=== PATIENT | male | born 1990 | race Caucasian/White ===

== ENCOUNTER 2019-10-22 13:41 | Emergency (ER) | payer OTHER, SELFPAY ==
--- NOTE | ~2019-10-22 | CT_ITS ---
EXAMINATION: CT abdomen pelvis w con EXAM DATE: 10/22/2019 15:07 INDICATION: Right-sided abdominal, flank pain. TECHNIQUE: Spiral CT of the abdomen and pelvis was performed following intravenous injection of 100 m L Omnipaque 350. Axial, coronal and sagittal images were reviewed. The dose-length product (DLP) fo r this examination was 538.56 mGy-cm. The exposure was tailored according to patient size (auto mA e xposure control), and iterative reconstruction (ASIR) was used as additional dose reduction technique . There is no prior study for comparison. FINDINGS: The liver, spleen, adrenal glands and pancreas are unremarkable. Gallbladder is unremarkab le. No biliary obstruction. There is a 3 mm stone in the right ureterovesicular junction with mild h ydronephrosis. There is additional 4 mm right mid calyceal stone. The prostate is unremarkable. The bladder is unremarkable. There is no retroperitoneal or pelvic lymphadenopathy. The appendix is normal. The stomach and small bowel are unremarkable. There is expected amount of c olonic stool. No free intraperitoneal gas. The heart is normal in size. There are no pericardial or pleural effusions. The lung bases are unremarkable. There are no osteoblastic or osteolytic les ions identified. IMPRESSION: Right UPJ 3 mm stone, mild hydronephrosis. Right nephrolithiasis. Reviewed, dictated and finalized at location B.
[2019-10-22 13:53] VITALS: BP 148/94; PULSE 87; RESP 18; TEMP 36.4; O2SAT 100
[2019-10-22 14:00] VITALS: BP 148/94; PULSE 87; RESP 18; TEMP 36.4; O2SAT 100
--- NOTE | 2019-10-22 14:11 | ED.ABDPAIN ---
HPI - Abdominal Pain General Chief Complaint: Urogenital-Male <Irish Good PA-C - Last Filed: 10/22/19 15:49> Stated Complaint: Possible Kidney Stone <Irish Good PA-C - Last Filed: 10/22/19 15:49> Time Seen by Provider: 10/22/19 13:47 <Irish Good PA-C - Last Filed: 10/22/19 15:49> Source: patient <Irish Good PA-C - Last Filed: 10/22/19 15:49> Mode of arrival: ambulatory <Irish Good PA-C - Last Filed: 10/22/19 15:49> Limitations: no limitations <Irish Good PA-C - Last Filed: 10/22/19 15:49> History of Present Illness HPI narrative: This is a 28 year old male that presents to the ER for right sided flank pain x 3 hours. Reports it radiates to his right abdomen. Associated with nausea and vomiting. Denies fever, dysuria, hematuria. <Irish Good PA-C - Last Filed: 10/22/19 15:49> Related Data Allergies/Adverse Reactions: Allergies Allergy/AdvReac Type Severity Reaction Status Date / Time Penicillins Allergy Unknown Hives Verified 10/22/19 13:59 Grass Allergy Mild Itching Uncoded 10/22/19 13:59 <Irish Good PA-C - Last Filed: 10/22/19 15:49> Review of Systems Review of Systems: Narrative: CONSTITUTIONAL: Denies fever GASTROINTESTINAL: Reports abdominal pain, nausea, vomiting GENITOURINARY: Denies dysuria or hematuria. MUSCULOSKELETAL: Reports back pain <Irish Good PA-C - Last Filed: 10/22/19 15:49> All systems reviewed & are unremarkable except as noted in HPI and below <Irish Good PA-C - Last Filed: 10/22/19 15:49> [facility] Past Medical History Medical History: Medical History (Updated 10/22/19 @ 15:23 by Irish Good PA-C) ADD (attention deficit disorder) <Irish Good PA-C - Last Filed: 10/22/19 15:49> Family History Family History: Family History (Updated 01/29/19 @ 07:18 by Shannon Morgan [facility]) Grandparent Neurological disease Other Asthma Diabetes mellitus Family history of cardiovascular disease Family history of migraine headaches Hypertension <Irish Good PA-C - Last Filed: 10/22/19 15:49> Social History Social History: Social History (Updated 10/22/19 @ 14:14 by Irish Good PA-C) Smoking status: Never smoker Alcohol intake: never Substance use: current Substance use type: marijuana Gender identity (if verbalized by the patient): Male Sexual Orientation (if Verbalized by the Patient): Straight or Heterosexual <Irish Good PA-C - Last Filed: 10/22/19 15:49> Exam Narrative: Exam Narrative: GENERAL: Well-appearing, well-nourished, and in mild acute distress due to pain. HEAD: Normocephalic, atraumatic. EYES: EOMI. CHEST: Clear to auscultation. No respiratory distress. No wheezes rales or rhonchi HEART: Regular rate and rhythm. No murmur heard. Normal peripheral pulses. ABDOMEN: Soft, nontender, nondistended, normal active bowel sounds. No CVA tenderness EXTREMITIES: Normal range of motion. No edema. SKIN: Warm, dry, no rash. NEURO: No focal deficits. Alert and oriented x3. PSYCH: Normal mood and affect <Irish Good PA-C - Last Filed: 10/22/19 15:49> Course Vital Signs Vital signs: Vital Signs Temperature 97.5 F L 10/22/19 13:53 Pulse Rate 87 10/22/19 13:53 Respiratory Rate 18 10/22/19 13:53 Blood Pressure 148/94 H 10/22/19 13:53 Pulse Oximetry 100 10/22/19 13:53 Temperature 97.5 F L 10/22/19 14:00 Pulse Rate 81 10/22/19 14:48 Respiratory Rate 21 H 10/22/19 14:48 Blood Pressure 124/84 10/22/19 14:48 Pulse Oximetry 100 10/22/19 14:48 <Irish Good PA-C - Last Filed: 10/22/19 15:49> Vital Signs Temperature 97.5 F L 10/22/19 13:53 Pulse Rate 87 10/22/19 13:53 Respiratory Rate 18 10/22/19 13:53 Blood Pressure 148/94 H 10/22/19 13:53 Pulse Oximetry 100 10/22/19 13:53 Temperature 97.5 F L 10/22/19 14:00 Pulse Rate 81 10/22/19 14:48 Respiratory R
[2019-10-22 14:15] LABS: Basophils Absolute Auto 0.1 K/mm3 (0.0-0.1); Basophils Percent Auto 0.4 % (0.2-1.2); Eosinophils Absolute Auto 0.3 K/mm3 (0-0.3); Eosinophils Percent Auto 2.4 % (0-4.4); Immature Granulocyte Absolute 0.06 K/mm3 (0.00-0.031); Immature Granulocyte Percent A 0.5 % (0-0.5); Lymphocytes Absolute Auto 1.14 K/mm3 (0.9-3.2); Mean Corpuscular HGB Conc 36.4 g/dl (32-36); Mean Corpuscular Hemoglobin 31.6 pg (26-34); Mean Platelet Volume 10.4 fl (7.4-10.4); Monocytes Absolute Auto 0.7 K/mm3 (0.1-0.6); Monocytes Percent Auto 5.9 % (2.6-8.5); Neutrophils Absolute Auto 9.2 K/mm3 (1.3-6.7); Neutrophils Percent Auto 80.8 % (45.5-73.1); Platelet Count Result 266 k/mm3 (150-375); Red Blood Count 5.06 M/mm3 (4.6-6.20); Red Cell Distribution Width 11.6 % (11.5-14.5); White Blood Count 11.4 K/mm3 (4.5-10.0)
[2019-10-22] MEDS: ONDANSETRON INJ 4 MG/2 ML VIAL IV PUSH (14:17)
[2019-10-22] MEDS: MORPHINE SULFATE 4 MG/ML INJ IV PUSH (14:17)
[2019-10-22] MEDS: SODIUM CHLORIDE 0.9% IV 1,000 ML 999 ML IV CONT (14:19)
[2019-10-22 14:27] LABS: Anion Gap 14 mmol/L (8-16); Blood Urea Nitrogen 13 mg/dL (9-20); Calcium 9.6 mg/dL (8.4-10.2); Carbon Dioxide 19 mmol/L (22-30); Chloride 104 mmol/L (98-107); Estimated CRCL calculation 97 ml/min; Estimated Glomerular Filt Rate > 60; Glucose 121 mg/dL (75-110); Potassium 3.7 mmol/L (3.4-5.0); Sodium 137 mmol/L (137-145)
[2019-10-22 14:48] VITALS: BP 124/84; PULSE 81; RESP 21; O2SAT 100
--- NOTE | 2019-10-22 14:49 | PC.NURSE ---
pt still unable to void . rn verbalized that if we are unable to pee after 30 min we will attempt a straight cath. pt has finished a 1LNS bolus.
[2019-10-22 15:34] LABS: Add Urine Microscopic? YES; Appearance Urine Cloudy (Clear); Bilirubin Urine Negative (Negative); Blood Urine 3+ (Negative); Color Urine Yellow (Yellow); Glucose Urine UA Negative (Negative); Ketones Urine 1+ mg/dL (Negative); Leukocyte Esterase Ur Negative LEU/UL (Negative); Mucus Urine Heavy /lpf; Nitrate Urine Negative (Negative); Protein Urine 2+ mg/dL (Negative); RBC Urine >75 /hpf (0-2); Squamous Epithelial Cell Urine Rare /hpf (Few); Urobilinogen Urine Negative mg/dL (<2.0); WBC Urine 0-3 /hpf
[2019-10-22 15:35] LABS: Specific Grav Ur 1.034 (1.001-1.035)
[2019-10-22 16:32] VITALS: BP 120/75; PULSE 81; RESP 19; O2SAT 100
== END 2019-10-22 16:32 | disposition home or self-care (01) ==
PROVIDERS: Physician Assistant; Emergency Provider Emergency Medicine; PCP Internal Medicine
DX: N13.2 Hydronephrosis with renal and ureteral calculous obstruction (principal)
CPT/HCPCS: 36415; 74177; 80048; 81001; 85025; 96365; 96375; 99284; J0131; J2270; J2405; J7030; Q9967

== ENCOUNTER 2021-05-12 13:48 | Outpatient (CLI) | payer OTHER, SELFPAY ==
--- NOTE | ~2021-05-12 | US_ITS ---
EXAMINATION: US renal BI EXAM DATE: 05/12/2021 14:19 INDICATION: Hx of right nephrolithiasis seen on CT. Right flank pain. History kidney stones. TECHNIQUE: Multiple grayscale and Doppler images of the kidneys were obtained (by a technologist who performed the scan) and subsequently reviewed. Correlation is made to prior CT examination from 2019. FINDINGS: Right kidney: There is normal contour and echogenicity. It measures 12.1 x 5.6 x 4.2 centimeters. T here are no focal renal lesions identified. There is no hydronephrosis. Left kidney: There is normal contour and echogenicity. It measures 13.0 x 5.6 x 6.0 centimeters. Th ere are no focal renal lesions identified. There is no hydronephrosis. Bladder unremarkable. Bilateral ureteral jets were confirmed. IMPRESSION: 1. Sonographically unremarkable kidneys. Reviewed, dictated and finalized at location A. DISPLAYS ANALYST
[2021-05-12 14:26] LABS: Basophils Percent Auto 0.4 % (0.2-1.2); Eosinophils Absolute Auto 0.1 K/mm3 (0-0.3); Eosinophils Percent Auto 1.4 % (0-4.4); Hematocrit 42.1 % (42.0-52.0); Hemoglobin 14.7 g/dL (14.0-18.0); Immature Granulocyte Absolute 0.03 K/mm3 (0.00-0.031); Immature Granulocyte Percent A 0.4 % (0-0.5); Lymphocytes Absolute Auto 2.36 K/mm3 (0.9-3.2); Lymphocytes Percent Auto 29.7 % (18.3-44.2); Mean Corpuscular HGB Conc 34.9 g/dl (32-36); Mean Corpuscular Hemoglobin 31.9 pg (26-34); Mean Corpuscular Volume 91.3 fl (80-100); Mean Platelet Volume 10.2 fl (7.4-10.4); Monocytes Absolute Auto 0.7 K/mm3 (0.1-0.6); Monocytes Percent Auto 8.2 % (2.6-8.5); Neutrophils Absolute Auto 4.8 K/mm3 (1.3-6.7); Neutrophils Percent Auto 59.9 % (45.5-73.1); Platelet Count Result 253 k/mm3 (150-375); Red Blood Count 4.61 M/mm3 (4.6-6.20); Red Cell Distribution Width 11.9 % (11.5-14.5); White Blood Count 7.9 K/mm3 (4.5-10.0)
[2021-05-12 14:36] LABS: Alanine Aminotransferase 27 U/L (4-50); Albumin Level 4.5 g/dL (3.5-5.1); Alkaline Phosphatase 66 U/L (38-126); Anion Gap 7 mmol/L (8-16); Aspartate Amino Transferase 28 U/L (17-59); Bilirubin,Total 0.6 mg/dL (0.2-1.3); Blood Urea Nitrogen 15 mg/dL (9-20); Calcium 8.7 mg/dL (8.4-10.2); Carbon Dioxide 27 mmol/L (22-30); Chloride 106 mmol/L (98-107); Cholesterol 176 mg/dL (0-200); Estimated Glomerular Filt Rate > 60; Glucose 75 mg/dL (65-110); HDL Direct 36 mg/dL; Potassium 4.2 mmol/L (3.4-5.0); Sodium 140 mmol/L (137-145); Triglycerides 522 mg/dL (<150)
[2021-05-12 14:47] LABS: LDL Cholesterol Direct 79 mg/dL
== END 2021-05-12 13:49 | disposition home or self-care (01) ==
PROVIDERS: Nurse Practitioner; PCP Internal Medicine; Visit Provider Family Medicine
DX: R10.9 Unspecified abdominal pain (principal); Z13.29 Encounter for screening for other suspected endocrine disorder; Z13.220 Encounter for screening for lipoid disorders
CPT/HCPCS: 36415; 76775; 80053; 80061; 85025

== ENCOUNTER 2021-05-26 14:32 | Outpatient (CLI) | payer OTHER, SELFPAY ==
--- NOTE | ~2021-05-26 | CT_ITS ---
EXAMINATION: CT abdomen pelvis wo con DATE: 05/26/2021 14:57 INDICATION: Hematuria. History of kidney stones. TECHNIQUE: Computed tomography (CT) of the abdomen and pelvis was performed without intravenous contr ast. Automated exposure control and iterative reconstruction technique were employed. Exam dose: 716 .62 mGy-cm total exam DLP. COMPARISON: 05/12/2021 bilateral renal ultrasound 10/22/2019 CT abdomen FINDINGS: The lung bases are clear. Normal heart size. No pericardial or pleural effusion. The liver, gallbladder, bile ducts, pancreas, spleen and adrenal glands are unremarkable. There is a nonobstructing 3.5 mm calculus of the mid left kidney. No other urinary tract calculus or hydroureteronephrosis. The urinary bladder, prostate gland and seminal vesicles are unremarkable. Normal caliber of the abdominal aorta. No intraperitoneal or retroperitoneal or pelvic mass lesion or adenopathy or ascites. Normal appendix. No bowel obstruction, bowel wall thickening, pneumatosis or intraperitoneal free air . Very small fat-containing umbilical hernia. No inguinal hernias demonstrated. Included skeletal structures are unremarkable. IMPRESSION: 3.5 mm nonobstructing mid left renal calculus Reviewed, dictated and finalized at Location A. Reviewed, dictated and finalized at location A.
== END 2021-05-26 14:33 | disposition home or self-care (01) ==
PROVIDERS: PCP Internal Medicine; Visit Provider Family Medicine
DX: R31.9 Hematuria, unspecified (principal); N20.0 Calculus of kidney; R10.9 Unspecified abdominal pain; K42.9 Umbilical hernia without obstruction or gangrene
CPT/HCPCS: 74176

== ENCOUNTER 2021-06-10 07:56 | Outpatient (CLI) | payer OTHER, SELFPAY ==
--- NOTE | 2021-06-14 17:57 | WPDHOMESLEEP ---
Sleep Study - Home Unattended Date of Study: 06/10/21 Ordering Provider: Edilma Jeknins DO Interpreting Provider: Edilma Jenkins DO Home Sleep Study Type: Watch PAT Height: 1.83 m Weight: 95.254 kg Body Mass Index: 28.5 Neck Circumference (inches): 16.25 [place]: 10 Reason for Sleep Study Snoring, nighttime choking, unrefreshing sleep Sleep History The patient is a 30-year-old male with ADD and kidney stones that had a sleep study ordered for evaluation of sleep apnea. The patient denies awakening from sleep short of breath. He rarely awakens at night with heartburn, belching or cough. He constantly snores loud enough that others complain. He constantly has trouble sleeping when he has a cold. He rarely wakes up gasping for air throughout the night. He occasionally has breathing problems at night observed by himself or others. He denies sweating excessively at night. He denies having heart palpitations or irregular heartbeats during the night. He rarely falls asleep during the day and never while driving. He frequently has trouble at school or work due to sleepiness. He denies sleep paralysis, cataplexy and hypnagogic / hypnopompic hallucinations. He frequently has nightmares. He occasionally has thoughts racing through his mind. He frequently feels sad or depressed. He constantly has anxiety. He denies noticing parts of his body jerk. He denies kicking during the night. He denies having crawling and aching feelings in his legs as well as leg pain during the night. He denies grinding his teeth during sleep and awakening morning jaw pain. Denies being bothered by pain during the day and being awakened by pain during the night. He rarely wakes up feeling stiff in the morning with sore or achy muscles. He rarely wakes up with pain in neck, spine and other joints. He goes to bed between 11:00 p.m. and midnight on weekdays and between midnight and 1:00 a.m. on the weekends. It does not take him longer to fall asleep. He wakes up 3 times throughout the night. When he awakens, he will drink water. He can fall back asleep within 5 minutes. He wakes up at 8:00 a.m. on weekdays and between 8 and 9 a.m. on the weekends. He typically gets 67 hours of sleep per night. he will stay in bed for 30 minutes after waking up in the morning. He currently lives with his . He does not consume any caffeinated beverages within 2 hours of bedtime. Does not engage in physical activity before bedtime. He will watch television before falling asleep. He does not take naps in the afternoon or the evening. He will have 1 caffeinated beverage per day. He currently uses E cigarettes daily. He does use marijuana. He denies alcohol use. [facility] Past Medical History Medical History ADD (attention deficit disorder) Family History Family History Grandparent Neurological disease Other Asthma Diabetes mellitus Family history of cardiovascular disease Family history of migraine headaches Hypertension Social History Social History Smoking status: Current some day smoker Tobacco type: e-cigarettes/vaping Alcohol intake: current Substance use: current Substance use type: marijuana Gender identity (if verbalized by the patient): Male Sexual Orientation (if Verbalized by the Patient): Straight or Heterosexual Medications Home Medications Medication Instructions Recorded Confirmed Type guaifenesin 600 mg tablet, 600 mg PO BID 05/05/21 05/05/21 History extended release 12 hr pseudoephedrine HCl 30 mg tablet 30 mg PO Q4-6H PRN 05/05/21 05/05/21 History Sleep Procedure The sleep study was completed using [employer] a technically adequate device with seven channels: peripheral arterial tone, actigraphy, body position, snore, respiratory
[2021-06-14 18:07] VITALS: BMI 28.5
== END 2021-06-13 11:42 | disposition home or self-care (01) ==
PROVIDERS: PCP Internal Medicine; Visit Provider Family Medicine
DX: G47.10 Hypersomnia, unspecified (principal)
CPT/HCPCS: 95800

== ENCOUNTER 2021-06-27 10:40 | Outpatient (CLI) | payer OTHER, SELFPAY ==
[2021-06-27 11:06] LABS: Cholesterol 152 mg/dL (0-200); HDL Direct 39 mg/dL; Triglycerides 143 mg/dL (<150)
[2021-06-27 11:16] LABS: LDL Cholesterol Direct 73 mg/dL
== END 2021-06-27 10:41 | disposition home or self-care (01) ==
PROVIDERS: PCP Internal Medicine; Visit Provider Clinical Nurse Specialist
DX: E78.1 Pure hyperglyceridemia (principal)
CPT/HCPCS: 36415; 80061

== ENCOUNTER 2022-09-08 11:14 | Outpatient (CLI) | payer OTHER, SELFPAY ==
[2022-09-08 18:32] LABS: Alanine Aminotransferase 25 U/L (6-50); Albumin Level 4.4 g/dL (3.5-5.1); Alkaline Phosphatase 57 U/L (38-126); Anion Gap 6 mmol/L (8-16); Aspartate Amino Transferase 24 U/L (17-59); Basophils Percent Auto 0.6 % (0.2-1.2); Bilirubin,Total 0.7 mg/dL (0.2-1.3); Blood Urea Nitrogen 18 mg/dL (9-20); Calcium 9.4 mg/dL (8.4-10.2); Carbon Dioxide 29 mmol/L (22-30); Chloride 106 mmol/L (98-107); Cholesterol 186 mg/dL (0-200); Eosinophils Absolute Auto 0.1 K/mm3 (0-0.3); Eosinophils Percent Auto 1.3 % (0-4.4); Estimated Glomerular Filt Rate > 60; Glucose 90 mg/dL (65-110); HDL Direct 40 mg/dL; Hematocrit 44.6 % (42.0-52.0); Hemoglobin 15.4 g/dL (14.0-18.0); Immature Granulocyte Absolute 0.01 K/mm3 (0.00-0.031); Immature Granulocyte Percent A 0.2 % (0-0.5); Lymphocytes Absolute Auto 1.88 K/mm3 (0.9-3.2); Lymphocytes Percent Auto 30.3 % (18.3-44.2); Mean Corpuscular HGB Conc 34.5 g/dl (32-36); Mean Corpuscular Hemoglobin 31.5 pg (26-34); Mean Corpuscular Volume 91.2 fl (80-100); Mean Platelet Volume 10.8 fl (7.4-10.4); Monocytes Absolute Auto 0.6 K/mm3 (0.1-0.6); Monocytes Percent Auto 8.9 % (2.6-8.5); Neutrophils Absolute Auto 3.6 K/mm3 (1.3-6.7); Neutrophils Percent Auto 58.7 % (45.5-73.1); Platelet Count Result 227 k/mm3 (150-375); Potassium 4.6 mmol/L (3.4-5.0); Red Blood Count 4.89 M/mm3 (4.6-6.20); Red Cell Distribution Width 11.9 % (11.5-14.5); Sodium 141 mmol/L (137-145); Triglycerides 137 mg/dL (<150); White Blood Count 6.2 K/mm3 (4.5-10.0)
[2022-09-08 18:43] LABS: LDL Cholesterol Direct 95 mg/dL
== END 2022-09-08 11:15 | disposition home or self-care (01) ==
LOC: ANHGOSHLAB 11:15
PROVIDERS: PCP Internal Medicine; Visit Provider Clinical Nurse Specialist
DX: Z13.228 Encounter for screening for other metabolic disorders (principal); E78.1 Pure hyperglyceridemia; G47.10 Hypersomnia, unspecified
CPT/HCPCS: 36415; 80053; 80061; 84443; 85025

== ENCOUNTER 2023-07-25 11:59 | Outpatient (CLI) | payer OTHER, SELFPAY ==
--- NOTE | ~2023-07-25 | XR_ITS ---
XR chest 2V DATE: 07/25/2023 12:11 INDICATION: Cough TECHNIQUE: 2 views COMPARISON: None FINDINGS: Normal heart size. No hilar or mediastinal enlargement. No pulmonary infiltrate or consolid ation, pleural effusion or pulmonary vascular congestion or pneumothorax is detected. Included skelet al structures are unremarkable. IMPRESSION: No active cardiopulmonary disease Reviewed, dictated and finalized at location B.
== END 2023-07-25 12:00 ==
PROVIDERS: PCP Clinical Nurse Specialist; Visit Provider Clinical Nurse Specialist
DX: R05.9 Cough, unspecified (principal); Z72.0 Tobacco use
CPT/HCPCS: 71046

== ENCOUNTER 2023-10-12 11:29 | Outpatient (CLI) | payer OTHER, SELFPAY ==
[2023-10-12 14:00] LABS: Basophils Percent Auto 0.5 % (0.2-1.2); Eosinophils Absolute Auto 0.1 K/mm3 (0-0.3); Eosinophils Percent Auto 1.8 % (0-4.4); Hematocrit 46.1 % (42.0-52.0); Hemoglobin 15.6 g/dL (14.0-18.0); Immature Granulocyte Absolute 0.01 K/mm3 (0.00-0.031); Immature Granulocyte Percent A 0.2 % (0-0.5); Lymphocytes Absolute Auto 1.81 K/mm3 (0.9-3.2); Lymphocytes Percent Auto 29.1 % (18.3-44.2); Mean Corpuscular HGB Conc 33.8 g/dl (32-36); Mean Corpuscular Hemoglobin 31.7 pg (26-34); Mean Corpuscular Volume 93.7 fl (80-100); Monocytes Absolute Auto 0.5 K/mm3 (0.1-0.6); Monocytes Percent Auto 8.4 % (2.6-8.5); Neutrophils Absolute Auto 3.7 K/mm3 (1.3-6.7); Platelet Count Result 233 k/mm3 (150-375); Red Blood Count 4.92 M/mm3 (4.6-6.20); Red Cell Distribution Width 11.9 % (11.5-14.5); White Blood Count 6.2 K/mm3 (4.5-10.0)
[2023-10-12 14:48] LABS: Alanine Aminotransferase 23 U/L (6-50); Albumin Level 4.4 g/dL (3.5-5.1); Alkaline Phosphatase 64 U/L (38-126); Anion Gap 8 mmol/L (4-12); Aspartate Amino Transferase 40 U/L (17-59); Bilirubin,Total 0.8 mg/dL (0.2-1.3); Blood Urea Nitrogen 19 mg/dL (9-20); Calcium 9.4 mg/dL (8.4-10.2); Carbon Dioxide 26 mmol/L (22-30); Chloride 105 mmol/L (98-107); Cholesterol 170 mg/dL (0-200); Estimated Glomerular Filt Rate > 60; Glucose 91 mg/dL (65-110); HDL Direct 44 mg/dL; Potassium 4.2 mmol/L (3.4-5.0); Sodium 139 mmol/L (137-145); Triglycerides 170 mg/dL (<150)
[2023-10-12 15:03] LABS: LDL Cholesterol Direct 87 mg/dL
== END 2023-10-12 11:30 | disposition home or self-care (01) ==
LOC: ANHGOSHLAB 11:30
PROVIDERS: PCP Clinical Nurse Specialist; Visit Provider Clinical Nurse Specialist
DX: Z13.220 Encounter for screening for lipoid disorders (principal); Z13.29 Encounter for screening for other suspected endocrine disorder
CPT/HCPCS: 36415; 80053; 80061; 85025

== ENCOUNTER 2024-10-21 09:47 | Outpatient (CLI) | payer OTHER, SELFPAY ==
[2024-11-10 15:21] VITALS: BMI 29.1
--- NOTE | 2024-11-10 15:21 | P.SLEEP_ITS ---
Sleep Study - Home Unattended Date of Study: 10/21/24 Ordering Provider: RULA WebsterP-C Interpreting Provider: Edilma Jenkins DO Home Sleep Study Type: Watch PAT Height: 1.83 m Weight: 97.522 kg Body Mass Index: 29.1 Neck Circumference (inches): 16.5 [place]: 9 Reason for Sleep Study snoring, daytime hypersomnia Sleep History The patient is a 33-year-old male that had a sleep study ordered by his sleep physician for evaluation of daytime hypersomnia. The patient admits to snoring loudly, interruptions in breathing while asleep, trouble falling asleep and excessive daytime sleepiness. He does choke or gasp at night. He denies having trouble breathing on his back. He does have morning headaches. He does have a dry or sore mouth / throat. He denies nocturnal heartburn. He denies nocturia. He denies having difficulty staying asleep. He denies having difficulty returning to sleep if he wakes up throughout the night. He does use hypnotics or sedatives. He does feel anxious about sleep. He does feel tired or sleepy during the day. He does feel tired in the morning. He does have the urge to fall asleep during the day. He denies feeling drowsy while driving. He denies sleep paralysis, cataplexy and hypnagogic/ hypnopompic hallucinations. He does clench or grind his teeth. He denies kicking or jerking his legs excessively. He denies having a restless feeling in his legs. He goes to bed at midnight every night. It takes him 30 minutes to fall asleep on work days and 1 hour on his days off. He gets 8 hours of sleep on his days off. His sleep is somewhat restorative on his days off. He denies taking any planned naps. he denies dream enactment behavior. He does sleep walk. He consumes 3-4 cups of caffeinated beverage per day. He has 1 alcoholic beverage 1-2 nights per week. He smokes less than 5 cigarettes per day. He exercises 1-2 nights per week. [facility] Past Medical History Medical History ADD (attention deficit disorder) Family History Family History Grandparent Neurological disease Other Asthma Diabetes mellitus Family history of cardiovascular disease Family history of migraine headaches Hypertension Social History Social History Smoking status: Current every day smoker (vape) Tobacco type: cigarettes and e-cigarettes/vaping Alcohol intake: current Substance use: current Substance use type: marijuana Lack of Transportation: No Lack of Food: Never True Current Housing: I Have Housing Concerned About Future Housing: No Difficulty Paying Gas/Electric Bills: No Difficulty Paying for Meds: No Currently Unemployed: No Education: Associate Degree Difficulty w/ Childcare or Family Care: No Gender identity (if verbalized by the patient): Male Sexual Orientation (if Verbalized by the Patient): Straight or Heterosexual Medications Home Medications ?Medication ?Instructions ?Recorded ?Confirmed ?Type cetirizine 10 mg tablet (Zyrtec) 10 mg PO DAILY PRN 10/09/24 History albuterol sulfate 90 mcg/actuation 1 puff inhalation Q 4H PRN 07/25/23 10/09/24 Rx aerosol inhaler shortness of breath or wheez ing #8.5 grams fluticasone propionate 50 2 spray intranasal DAILY #16 grams 07/25/23 10/09/24 Rx mcg/actuation nasal spray,suspension eszopiclone 2 mg tablet (Lunesta) 2 mg PO QHS #1 table t 10/09/24 10/09/24 Rx Sleep Procedure The sleep study was completed using [employer]ek[employer] a technically adequate device with seven channels: peripheral arterial tone, actigraphy, body position, snore, respiratory movement, pulse oximetry, sleep staging, and heart rate. Prior to using the device, the patient received verbal and written instructions for its application and was provided with the [employer] desk phone number for additional telephonic instruction with 24-hour availability of qualified personnel to answer questions. The study was scored using [facility] guidelines. Sleep Architecture The total recording time is 8 hrs, 22 min. The total sleep time is 7 hrs, 55 min. Sleep latency is 16 minutes. REM latency is 230 minutes. The patient had 3 episodes of waking. Sleep architecture shows 20.1% deep sleep, 63.1% light sleep, and (as % Total Sleep Time) showed NREM (Light 63.1%; Deep 20.1%), and a 16.8% stage REM. The patient spent 36.8% of total sleep time in the supine position. Sleep efficiency was 94.62. Respiratory Analysis The overall AHI (pAHI 4%:) is 2.8. The overall AHI (pAHI 3%:) is 3.2. The central AHI is 0.6. The AHI was 2.0 in NREM and 9.1 in REM sleep. The AHI was 2.1 in Supine and 3.8 in Non-supine sleep. Percent of Dennis Corea respirations is 0.0. Oximetry Data The oxygen desaturation index (SHEFALI 4%:) is 1.1. The mean saturation is 95%, and the lowest saturation is 89%. Time spent with saturation < 88% is 0.0 minutes. Snoring Profile Snoring average intensity is 41 dB. The patient snored above 45 decibels for 19.5 minutes, 4.1% of sleep time. Cardiac Profile The average pulse rate is 76 beats per minutes. The lowest pulse rate is 56 bpm. The highest pulse rate reported is 109 bpm. Atrial fibrillation was not detected. Premature beats occur <0.1 per minute. Assessment and Plan Assessment and Plan (1) Snoring: Code(s): R06.83 - Snoring Status: Acute Assessment and Plan: The patient had an overall AHI of 2.8 with desaturation down to 89%. This is not consistent with sleep-disordered breathing. Due to the patient's hypersomnia, further evaluation is warranted. I recommend that the patient have a split study with the use of a hypnotic to ensure we obtain enough sleep data. Data The data obtained during this sleep study is adequate for interpretation. Certification This sleep study has been reviewed by a board certified sleep medicine physician.
== END 2024-10-22 10:28 | disposition home or self-care (01) ==
LOC: ANHCSM 09:54
PROVIDERS: PCP Internal Medicine; Visit Provider Clinical Nurse Specialist
DX: G47.10 Hypersomnia, unspecified (principal); R06.81 Apnea, not elsewhere classified; R06.83 Snoring
CPT/HCPCS: 95800